=== PATIENT | female | born 2000 | race African-American/Black ===

== ENCOUNTER 2023-04-30 10:42 | Emergency (ER) | payer MEDICAID ==
[~2023-04-30] VITALS: Ht 160 cm; Wt 117.0 kg
[2023-04-30 13:15] LABS: GC DNA AMPLIFICATION NEGATIVE (NEGATIVE)
[2023-04-30 13:45] LABS: URINE PREG TEST NEGATIVE (NEGATIVE)
[2023-04-30] MEDS ORDERED: FLUCONAZOLE 50MG TABLET PO ONE (17:30)
[2023-04-30 17:47] LABS: BASO % 0.2 % (0.0-1.0); EOS # 0.2 10^3/uL (0.0-0.5); EOS % 1.7 % (0.0-3.0); HEMATOCRIT 35.2 % (36.0-47.0); HEMOGLOBIN 11.1 g/dl (12.0-15.5); LYMPH # 3.6 10^3/uL (1.5-5.0); MEAN CORPUSCULAR HEMOGLOBIN 26.5 pg (27.0-33.0); MEAN CORPUSCULAR HGB CONC 31.5 g/dl (32.0-36.5); MONO # 0.8 10^3/uL (0.0-0.8); MONO % 5.7 % (2.0-8.0); NEUTROPHILS # 8.7 10^3/uL (1.5-8.5); NEUTROPHILS % 65.2 % (36.0-66.0); PLATELET COUNT, AUTOMATED 381 10^3/uL (150-450); RED BLOOD COUNT 4.19 10^6/uL (4.00-5.40); WHITE BLOOD COUNT 13.3 10^3/uL (4.0-10.0)
[2023-04-30 18:34] VITALS: BP 137/87; TEMP 97; O2SAT 100
[2023-04-30] MEDS ORDERED: DOXYCYCLINE HYCLATE 100MG TABLET PO ONE (19:00)
[2023-04-30] MEDS ORDERED: LIDOCAINE 1% SDV 5ML VIAL DILUENT ONE (19:00)
[2023-04-30] MEDS ORDERED: cefTRIAXone SOD 1GM VIAL IM ONE (19:00)
[2023-04-30] MEDS ORDERED: metroNIDAZOLE (FLAGYL) 500MG TABLET PO ONE (19:00)
[2023-04-30] MEDS ORDERED: DOXY-443 PO (19:03)
[2023-04-30] MEDS ORDERED: METR-265 PO (19:03)
== END 2023-04-30 19:16 | disposition home or self-care (01) ==
LOC: M ED 10:42
DX: N83.53 Torsion of ovary, ovarian pedicle and fallopian tube (principal); Z88.8 Allergy status to other drugs, medicaments and biological substances
CPT/HCPCS: 76830; 76856; 81001; 84703; 85025; 87088; 87186; 87210; 87661; 87810; 87850; 93976; 96372; 99283; J0696

== ENCOUNTER 2023-06-15 16:55 | Emergency (ER) | payer MEDICAID ==
[~2023-06-15] VITALS: Ht 157.5 cm; Wt 116.4 kg
[~2023-06-15 16:55] MED LIST: DOXY-443 PO; METR-265 PO
[2023-06-15 20:08] LABS: RSV AMPLIFICATION NEGATIVE (NEGATIVE)
[2023-06-15] MEDS ORDERED: AMOX500C PO (21:42)
[2023-06-15] MEDS ORDERED: AMOXICILLIN 500 MG CAP PO ONE (21:45)
[2023-06-15 21:52] VITALS: BP 133/90; TEMP 98.7; O2SAT 99
== END 2023-06-15 21:54 | disposition home or self-care (01) ==
LOC: M ED 16:55
DX: J03.80 Acute tonsillitis due to other specified organisms (principal); Z88.8 Allergy status to other drugs, medicaments and biological substances

== ENCOUNTER 2023-07-02 21:23 | Emergency (ER) | payer MEDICAID ==
[~2023-07-02] VITALS: Ht 157.5 cm; Wt 116.7 kg
[~2023-07-02 21:23] MED LIST changes: +AMOX500C PO
[2023-07-03 01:06] VITALS: BP 134/89; TEMP 98; O2SAT 99
== END 2023-07-03 01:28 | disposition home or self-care (01) ==
LOC: M ED 21:23
DX: Z32.01 Encounter for pregnancy test, result positive (principal); Z88.8 Allergy status to other drugs, medicaments and biological substances

== ENCOUNTER → 2023-08-13 | Outpatient (REF) | payer OTHER ==
[2023-08-13 17:37] LABS: HEMATOCRIT 34.4 % (36.0-47.0); HEMOGLOBIN 11.1 g/dl (12.0-15.5); MEAN CORPUSCULAR HEMOGLOBIN 26.2 pg (27.0-33.0); MEAN CORPUSCULAR HGB CONC 32.3 g/dl (32.0-36.5); MEAN CORPUSCULAR VOLUME 81.3 fl (80.0-96.0); PLATELET COUNT, AUTOMATED 358 10^3/uL (150-450); RED BLOOD COUNT 4.23 10^6/uL (4.00-5.40)
[2023-08-13 18:33] LABS: HIV 1&2 SCREEN NEGATIVE (NEGATIVE)
[2023-08-13 18:42] LABS: HEPATITIS C VIRUS ABY INDEX 0.04 INDEX (<0.8)
== END ==
LOC: M PLALAB 16:52
PROVIDERS: ATTEND Advanced Practice Midwife
DX: Z34.01 Encounter for supervision of normal first pregnancy, first trimester (principal)

== ENCOUNTER 2023-08-22 15:48 | Emergency (ER) | payer OTHER ==
[~2023-08-22] VITALS: Ht 157.5 cm; Wt 116.0 kg
[2023-08-22] MEDS ORDERED: MULTTAB20 PO (15:57)
[2023-08-22 17:26] LABS: HEMATOCRIT 34.4 % (36.0-47.0); MEAN CORPUSCULAR HEMOGLOBIN 26.5 pg (27.0-33.0); MEAN CORPUSCULAR VOLUME 82.9 fl (80.0-96.0); PLATELET COUNT, AUTOMATED 348 10^3/uL (150-450); RED BLOOD COUNT 4.15 10^6/uL (4.00-5.40)
[2023-08-22 17:36] LABS: APPEARANCE, URINE HAZY (CLEAR); BACTERIA, URINE AUTO NEGATIVE (NEGATIVE); BILIRUBIN, URINE AUTO NEGATIVE (NEGATIVE); BLOOD, URINE BLOOD NEGATIVE (NEGATIVE); COLOR, URINE YELLOW (YELLOW); GLUCOSE, URINE (UA) AUTO NEGATIVE (NEGATIVE); KETONE, URINE AUTO TRACE mg/dL (NEGATIVE); LEUKOCYTE ESTERASE, URINE AUTO TRACE (NEGATIVE); MUCUS, URINE SMALL (NEGATIVE); NITRITE, URINE AUTO NEGATIVE (NEGATIVE); PROTEIN, URINE AUTO NEGATIVE (NEGATIVE); RBC, URINE AUTO 1 /HPF (0-3); SPECIFIC GRAVITY URINE AUTO 1.019 (1.002-1.035); SQUAMOUS EPITHELIAL CELL UR AU 11 /HPF (0-6); UROBILINOGEN, URINE AUTO 0.2 mg/dL (0.0-2.0); WBC, URINE AUTO 3 /HPF (0-3)
[2023-08-22 18:10] LABS: ALKALINE PHOSPHATASE 45 U/L (46-116); ALT/SGPT 15 U/L (7.0-40); AST/SGOT 30 U/L (<34); BILIRUBIN,DIRECT < 0.1 MG/DL (<0.4); BILIRUBIN,TOTAL 0.3 MG/DL (0.3-1.2); BLOOD UREA NITROGEN < 5 MG/DL (9-23); CALCIUM LEVEL 8.6 MG/DL (8.5-10.1); CARBON DIOXIDE LEVEL 21 MMOL/L (20-31); CHLORIDE LEVEL 109 MMOL/L (98-107); CREATININE FOR GFR 0.46 MG/DL (0.55-1.30); GLOMERULAR FILTRATION RATE > 60.0 (>60); GLUCOSE, FASTING 81 MG/DL (60-100); LIPASE 23 U/L (12-53); POTASSIUM SERUM 4.7 MMOL/L (3.5-5.1); SODIUM LEVEL 138 MMOL/L (136-145); TOTAL PROTEIN 6.4 G/DL (5.7-8.2)
[2023-08-22] MEDS ORDERED: NS 1,000 ML IV ONE (19:05)
[2023-08-22 20:41] VITALS: BP 141/76; TEMP 99.7; O2SAT 98
== END 2023-08-22 20:58 | disposition home or self-care (01) ==
LOC: M ED 15:48
DX: O99.611 Diseases of the digestive system complicating pregnancy, first trimester (principal); Z86.19 Personal history of other infectious and parasitic diseases; Z3A.12 12 weeks gestation of pregnancy; Z88.8 Allergy status to other drugs, medicaments and biological substances

== ENCOUNTER 2023-09-20 14:55 | Emergency (ER) | payer OTHER ==
[~2023-09-20] VITALS: Ht 157.5 cm; Wt 118.1 kg
[~2023-09-20 14:55] MED LIST changes: +MULTTAB20 PO
[2023-09-20 18:47] LABS: BASO % 0.2 % (0.0-1.0); EOS # 0.1 10^3/uL (0.0-0.5); EOS % 0.8 % (0.0-3.0); HEMATOCRIT 35.5 % (36.0-47.0); HEMOGLOBIN 11.4 g/dl (12.0-15.5); LYMPH # 2.6 10^3/uL (1.5-5.0); LYMPH % 19.8 % (24.0-44.0); MEAN CORPUSCULAR HEMOGLOBIN 26.6 pg (27.0-33.0); MEAN CORPUSCULAR HGB CONC 32.1 g/dl (32.0-36.5); MEAN CORPUSCULAR VOLUME 82.8 fl (80.0-96.0); MONO # 0.6 10^3/uL (0.0-0.8); MONO % 4.9 % (2.0-8.0); NEUTROPHILS # 9.6 10^3/uL (1.5-8.5); PLATELET COUNT, AUTOMATED 301 10^3/uL (150-450); RED BLOOD COUNT 4.29 10^6/uL (4.00-5.40)
[2023-09-20] MEDS: ONDANSETRON 4MG ORAL DISINTEGRATING TAB PO ONE (20:11)
[2023-09-20] MEDS: ACETAMINOPHEN TAB 650MG DOSE (2X325MG) PO ONE (20:12)
[2023-09-20 23:15] VITALS: BP 135/69; TEMP 99.4; O2SAT 99
== END 2023-09-20 23:18 | disposition home or self-care (01) ==
LOC: M ED 14:55
DX: O26.892 Other specified pregnancy related conditions, second trimester (principal); Z3A.16 16 weeks gestation of pregnancy; Z88.8 Allergy status to other drugs, medicaments and biological substances; Z79.810 Long term (current) use of selective estrogen receptor modulators (SERMs)

== ENCOUNTER → 2023-10-12 | Outpatient (CLI) | payer OTHER | LOC: M WHC 12:03 | PROVIDERS: ATTEND Advanced Practice Midwife | DX: Z34.02 Encounter for supervision of normal first pregnancy, second trimester (principal) ==